=== PATIENT | male | born 1935 | race Caucasian/White ===

== ENCOUNTER 2017-11-09 15:27 | Inpatient (IN) | payer MEDICARE, MEDICAID ==
[~2017-11-09] VITALS: Ht 185.4 cm; Wt 72.7 kg
--- NOTE | ~2017-11-09 | PR ---
[place], [place] PROGRESS NOTE NAME: SABRINA CIFUENTES UNIT #: [id number] ROOM: 507 DOCTOR: RISHI WINTERS MD BIRTHDATE: [birth year] DOS: 11/11/2017 SUBJECTIVE: The patient still remains obtunded, barely opens his eyes, but does not communicate. He is very weak, barely eating and remains febrile. OBJECTIVE: VITAL SIGNS: Blood pressure 142/51, heart rate of 78 beats per minute, breathing 18 times per minute, fever of 101.1 degrees Fahrenheit, pulse ox 95-100%. GENERAL APPEARANCE: Generalized weakness and the patient is lethargic, barely opens his eyes, not communicating. HEENT AND NECK: Exam within normal limits. CARDIOVASCULAR SYSTEM: Heart rate is regular in rate and rhythm. S1 and S2 normally audible. LUNGS: Clear to auscultation. ABDOMEN: Soft, nontender. No obvious organomegaly. Bowel sounds are present. EXTREMITIES: Without significant cyanosis or edema. IMPRESSION: 1. Sepsis, urinary infection, high grade fevers, being treated with Tylenol and Advil. The patient is on IV meropenem and his condition is not improving. His prognosis is poor. He maintains a do not resuscitate/comfort care code status. 2. Leukocytosis with white cell count of 24,000 type has increased from before despite of treatment with meropenem. The patient has no diarrhea to suggest Clostridium difficile colitis checked with the patient, nursing staff and nursing aides. 3. The patient's prognosis remains extremely poor. 4. Multiple wounds on the lower back, sacral area and thigh area and scrotum, being treated. 5. Acute kidney failure with improvement in BUN and creatinine to 30 and 1.4 with hydration with normal saline. Urine cultures are back growing Escherichia coli sensitive to meropenem. He is being treated appropriately. RISHI WINTERS MD CM:PNTRANS [phone] RISHI WINTERS MD 11/11/171952 interface
--- NOTE | ~2017-11-09 | WRIGHTHP ---
[place], [place] PATIENT HISTORY AND PHYSICAL EXAM NAME: SABRINA CIFUENTES [facility] #: [id number] UNIT #: [id number] ROOM: 507 DOCTOR: RISHI WINTERS MD BIRTHDATE: [birth year] DOS: 11/09/2017 HISTORY OF PRESENT ILLNESS: The patient is an 82-year-old gentleman with a past medical history of: 1. Adult failure to thrive. 2. Late onset Alzheimer's type dementia. 3. Coronary artery disease of the [place] vessels, coronary artery bypass graft, 3-vessel in 2007 at [facility]. 4. Type 2 diabetes mellitus. 5. Benign essential hypertension. 6. Generalized anxiety disorder. 7. Major depression, recurrent, mild. 8. Parkinson's disease. 9. GERD. 10. Chronic lower back pains. 11. Combined systolic and diastolic type CHF. 12. Multiple wounds in the sacral and inner thigh area. The patient presented to [facility] Emergency Department for failed outpatient treatment. The patient already was admitted at [facility], which is a senior care and being treated with Augmentin for urinary tract infection and altered mental status. The patient's condition was not improving and had high-grade fevers despite of treatment with Augmentin, so he was seen in the Emergency Department and confirmed to have a urinary tract infection and high-grade fevers and altered mental status. After performing a CT scan of the head and sending out urine cultures and initial treatment with antibiotics, he was admitted for further management and Infectious Diseases were consulted. The patient has had a poor appetite, barely taking any fluids, more lethargic and not communicating like he used to be able to before despite of his dementia. After admission, the patient does open his eyes and looks around, but not answering to any of my questions, appears very weak. REVIEW OF SYSTEMS: LUNGS: No increasing shortness of breath. GASTROINTESTINAL: No nausea, vomiting, diarrhea or constipation, but poor appetite. CARDIOVASCULAR: No recent chest pains or palpitations. SOCIAL HISTORY: The patient is a resident at [facility] for many years now. Denies smoking cigarettes, alcohol and drug abuse. FAMILY HISTORY: Noncontributory. ALLERGIES: Known allergies to QUINOLONES, TRAMADOL and FLEXERIL. HOME MEDICATIONS: MiraLax, Dulcolax, aspirin, Sinemet, Plavix, Zoloft, Augmentin. PHYSICAL EXAMINATION: GENERAL: Awake, alert, ____, does open his eyes, but does not communicate, [place], [place] PATIENT HISTORY AND PHYSICAL EXAM NAME: SABRINA CIFUENTES [facility] #: [id number] UNIT #: [id number] ROOM: 507 DOCTOR: RISHI WINTERS MD BIRTHDATE: [birth year] weak, barely moving his extremities, generalized weakness and muscle wasting and has multiple wounds on his sacral and inner thigh area. VITAL SIGNS: Blood pressure 157/67, heart rate 79 beats per minute, breathing 20 times per minute, temperature of 102.3 degrees rectal. HEENT AND NECK: Extraocular movements are intact. Sclerae are anicteric. Oral mucosa is moist and clean. No obvious facial weakness. Neck is supple without any lymphadenopathy. No thyromegaly. No JVD. No carotid arterial bruits. LUNGS: Clear to auscultation. No wheezing. No rhonchi. CARDIOVASCULAR SYSTEM: Heart rate is regular in rate and rhythm. S1 and S2 normally audible. No significant murmur or any other abnormal cardiac sounds. ABDOMEN: Soft, nontender. No obvious organomegaly. Bowel sounds are present. No obvious herniation. EXTREMITIES: Without significant cyanosis or edema. Warm to touch. CENTRAL NERVOUS SYSTEM: Alert and oriented x 3. Cranial nerves II-XII are intact. Speech is normal. ____. Deep tendon reflexes are equal on both sides. Plantars were downgoing. LABORATORY DATA: Urine culture is growing light gram-negative bacilli. BUN and creatinine 39 and 1.3, improved from admission, sodium elevated to 151. Lactic acid level was elevated at 2.3, improved to 1.7 with hydration. His BUN and creatinine yesterday were 38 [address] of the head showed no acute abnormality. White cell count elevated to 15,000. IMPRESSION: 1. The patient presenting with sepsis, possibly related to a urinary source, high grade fevers, being treated with Tylenol and Advil and blood cultures and urine cultures have been sent. I have consulted Infectious Disease specialist and patient is being treated with IV meropenem. No signs of any chest infection. No shortness of breath or cough. 2. Urinary tract infection and cystitis, being covered with antibiotics, failed outpatient treatment. 3. Leukocytosis with white cell count of 15,300, lactic acid elevation to 2.3 and high-grade fevers up to 102.3 degrees Fahrenheit, compatible with sepsis. Blood cultures have been sent. 4. Benign essential hypertension. Blood pressure is to be monitored and treated. 5. Type 2 diabetes mellitus. Metformin was stopped because of elevation of creatinine. The patient is being hydrated. Blood sugar is to be monitored and treated. The patient does not need any hyperglycemic treatments now because he is not eating much. 6. Advance adult failure to thrive, poor appetite, dehydration, sepsis and poor prognosis. The patient maintains a comfort care code status and he will be treated conservatively. 7. Coronary artery disease of the [place] vessels, without chest pains. 8. Parkinson's disease, for which I will continue Sinemet and keep him on physical therapy and take bedsore precautions. 9. Multiple wounds on lower back and inner thigh area, being followed by wound care and dressings are being applied and we are taking bedsore and fall precautions. 10. Altered mental status, apparently secondary to infection and sepsis. CT of [place], [place] PATIENT HISTORY AND PHYSICAL EXAM NAME: SABRINA CIFUENTES UNIT #: [id number] ROOM: 507 DOCTOR: RISHI WINTERS MD BIRTHDATE: [birth year] the head was without any acute abnormality. 11. Acute kidney failure with creatinine elevated to more than 1.6, is improving with hydration with normal saline, apparently from dehydration and sepsis. 12. Hypernatremia secondary to acute kidney failure and dehydration, to be monitored and treated. Sodium levels to be checked every day. RISHI WINTERS MD CM:HISPHYS:PATIENT HISTORY AND PHYSICAL EXAMINATION 1351 [id number] RISHI WINTERS MD 11/10/17 1431 interface
--- NOTE | ~2017-11-09 | PR ---
[place], [place] PROGRESS NOTE NAME: SABRINA CIFUENTES UNIT #: [id number] ROOM: 512 DOCTOR: RISHI WINTERS MD BIRTHDATE: [birth year] DOS: IMPRESSION: 1. The patient remains under hospice care at the hospital. Blood pressure is 112/50, heart rate 79 beats per minute, breathing normally temperature is ranging between 99-101 degrees Fahrenheit. The patient converted to comfort care. He appears comfortable. No complaints of any agitation. He is not requiring any medications. 2. Recent urinary tract infection with E. coli, which was treated earlier. 3. Coronary artery disease of the [place] vessels without any recent complaints of chest pain. 4. Generalized anxiety disorder. No signs of any anxiety or agitation. RISHI WINTERS MD CM:PNTRANS [id number] RISHI WINTERS MD 11/16/17 0158 interface
--- NOTE | ~2017-11-09 | PR ---
[place], [place] PROGRESS NOTE NAME: SABRINA CIFUENTES UNIT #: [id number] ROOM: 512 DOCTOR: RISHI WINTERS MD BIRTHDATE: [birth year] DOS: 11/12/2017 SUBJECTIVE: The patient continues to barely open his eyes, otherwise he is not communicating. OBJECTIVE: VITAL SIGNS: Blood pressure 130/86, temperature is going as high as 102.4 degrees Fahrenheit. GENERAL APPEARANCE: The patient is alert and oriented x 3, in no visible distress, generalized weakness. HEENT AND NECK: Exam within normal limits. CARDIOVASCULAR SYSTEM: Heart rate is regular in rate and rhythm. S1 and S2 normally audible. LUNGS: Clear to auscultation. ABDOMEN: Soft, nontender. No obvious organomegaly. Bowel sounds are present. EXTREMITIES: Without significant cyanosis or edema. IMPRESSION: 1. The patient with high grade fevers, remains on antibiotics. All blood cultures have been negative. No obvious site of infection other than urine infection, positive for Escherichia coli sensitive to meropenem. Situation discussed with Infectious Disease specialist, Dr. Michael Henderson today. 2. Adult failure to thrive, old age and poor prognosis. 3. Severe leukocytosis, white cell count improved from 24,000 to 20,000 today. 4. Acute kidney failure related to sepsis, being treated with hydration with half normal saline now. 5. Hypernatremia, stabilizing with half normal saline. RISHI WINTERS MD CM:PNTRANS [phone] RISHI WINTESR MD 11/12/17 2252 interface
[~2017-11-09 15:27] MED LIST: AMLODIPINE5 MG PO; ASPIR-TRIN325 MG PO; ASPIRIN325 MG PO; ATIVAN1 MG PO; ATORVASTATIN CA10 M1 PO; AUGMENTIN 875875 MG PO; B-12500 MCG PO; B12,B-12,B 12500 MC1 PO; B121000 MCG/1 IM; BENADRYL ALLERG25 M5 PO; BUSPAR5 MG PO; CARBIDOPA & LEV1 TA1 PO; CELEXA20 MG PO; CIPROFLOXACIN500 MG PO; CLEOCIN T1% T; CLOTRIM ANTIFUNGAL1% T; COREG6.25 MG PO; COZAAR100 MG PO; DELTASONE20 M1 PO; DULCOLAX10 M1 RC; DUONEB 3 MG/3 ML3 M1 INH; FLEXERIL10 MG PO; FLONASE0.05 MG/AC NS; GLUCOPHAGE1000 MG PO; IBUPROFEN600 MG PO; K-Dur 20MEQ20 MEQ PO; KEFLEX500 M1 PO; LASIX20 MG PO; LEXAPRO10 MG PO; LEXAPRO5 MG PO; LORAZEPAM0.5 MG PO; METFORMIN1000 MG PO; METFORMIN500 MG PO; METOPROLOL25 MG PO; MILK OF MA400 MG/5 M PO; MIRALAX POWDER17 GM PO; MIRALAX17 GM PO; MULTI VITAMINS1 TAB PO; NORVASC5 MG PO; NYSTATIN CREAM15 GM PO; OMNICEF300 MG PO; ONDANSETRON4 MG PO; PLAVIX75 M1 PO; PLAVIX75 MG PO; PRILOSEC20 MG PO; PRILOSEC40 MG PO; PROVENTIL0.09 MG/A1 INH; PULMICORT RESP0.5 MG INH; SIMVASTATIN40 MG PO; SINEMET 25-1001 TA1 PO; SINEMET 25-1001 TAB PO; TESTOSTERON200 MG/ML; TETRACYCLINE250 MG PO; TRAMADOL HCL50 MG PO; TYLENOL ARTHRI650 MG PO; TYLENOL325 M2 PO; VITAMIN B11000 MCG/M IM; VITAMIN D32000 I1 PO; VITAMIN D350000 UNIT PO; VITAMIN D5000 I2 PO; WELLBUTRIN SR150 MG PO; ZOCOR40 MG PO; ZOLOFT50 MG PO; ZOLPIDEM TART10 MG PO; Zofran4 MG PO
[2017-11-09 15:34] VITALS: BP 155/81
[2017-11-09] MEDS ORDERED: VITAMIN C500 M1 PO (15:53)
[2017-11-09] MEDS ORDERED: APLISOL5 TUB UNIT INTRADERM (15:54)
[2017-11-09] MEDS ORDERED: ATIVAN0.5 MG PO (15:55)
[2017-11-09] MEDS ORDERED: BAYER ASPIRIN C81 MG PO (15:55)
[2017-11-09 16:13] LABS: BASO % 0.2 % (0.0-1.0); HEMATOCRIT 44.1 % (42.0-52.0); HEMOGLOBIN 13.7 g/dl (14.0-18.0); LYMPH % 19.5 % (27.0-41.0); MEAN CELL VOLUME 85.8 fl (80.0-94.0); MEAN CORPUSCULAR HGB 26.7 pg (27.0-31.0); MEAN CORPUSCULAR HGB CONC 31.1 g/dl (33.0-37.0); MEAN PLATELET VOLUME 10.3 fl (9.6-12.3); MONO % 6.3 % (3.0-9.0); NEUT # 11.2 10*3/uL (2.3-7.9); NEUT % 73.2 % (47.0-73.0); PLATELET COUNT AUTOMATED 360 10*3/uL (130-400); RED BLOOD COUNT 5.14 10*6/uL (4.50-5.90); WHITE BLOOD COUNT 15.3 10*3/uL (4.8-10.8)
[2017-11-09 16:21] LABS: INTERNATIONAL NORM RATIO 1.1 (2.0-3.5)
[2017-11-09 16:31] LABS: ALBUMIN 3.2 gm/dl (3.1-4.5); ALKALINE PHOSPHATASE 72 U/L (45-117); BUN 38 mg/dl (7-24); CHLORIDE 111 mmol/L (98-107); CREATININE 1.63 mg/dL (0.70-1.30); POTASSIUM 4.2 mmol/L (3.5-5.1); SGOT/AST 9 IU/L (3-35); SGPT/ALT 18 U/L (12-78); SODIUM 146 mmol/L (136-145); TOTAL PROTEIN 9.1 gm/dL (6.4-8.2)
[2017-11-09 16:35] LABS: TROPONIN I < 0.015 ng/ml (<0.045)
[2017-11-09 18:21] LABS: BILIRUBIN NEGATIVE (NEGATIVE); BLOOD 3+ (NEGATIVE); CLARITY CLOUDY (CLEAR); COLOR YELLOW (YELLOW); GLUCOSE 1+ (NEGATIVE); KETONE NEGATIVE (NEGATIVE); LEUKO ESTERASE 2+ (NEGATIVE); NITRITE NEGATIVE (NEGATIVE); SPECIFIC GRAVITY >= 1.030 (1.005-1.030)
[2017-11-09 18:24] VITALS: BP 156/73
[2017-11-09 18:35] LABS: BACTERIA 2+; RBC 16-20 rbc/hpf (0-2); WBC 31-40 wbc/hpf (0-5)
[2017-11-09 21:01] VITALS: BP 167/73
[2017-11-09] MEDS ORDERED: TYLENOL325 M1 PO (21:17)
[2017-11-10] VITALS: BP 171/70
[2017-11-10 04:00] VITALS: BP 155/67
[2017-11-10 06:40] LABS: BASO % 0.2 % (0.0-1.0); EOS % 0.1 % (1.0-4.0); HEMATOCRIT 40.4 % (42.0-52.0); HEMOGLOBIN 12.5 g/dl (14.0-18.0); LYMPH # 2.3 10*3/uL (1.3-4.4); LYMPH % 16.4 % (27.0-41.0); MEAN CORPUSCULAR HGB 26.6 pg (27.0-31.0); MEAN CORPUSCULAR HGB CONC 30.9 g/dl (33.0-37.0); MEAN PLATELET VOLUME 10.6 fl (9.6-12.3); MONO # 0.8 10*3/uL (0.1-1.0); MONO % 6.1 % (3.0-9.0); NEUT # 10.5 10*3/uL (2.3-7.9); NEUT % 76.3 % (47.0-73.0); PLATELET COUNT AUTOMATED 325 10*3/uL (130-400); RED CELL DISTRI WIDTH 16.8 % (0-14.5); WHITE BLOOD COUNT 13.8 10*3/uL (4.8-10.8)
[2017-11-10 06:57] LABS: BUN 39 mg/dl (7-24); CHLORIDE 117 mmol/L (98-107); POTASSIUM 3.9 mmol/L (3.5-5.1); SODIUM 151 mmol/L (136-145)
[2017-11-10 06:58] LABS: CREATININE 1.34 mg/dL (0.70-1.30)
[2017-11-10 08:00] VITALS: BP 147/66
[2017-11-10 12:00] VITALS: BP 157/67
[2017-11-10 16:00] VITALS: BP 147/63
[2017-11-10 20:00] VITALS: BP 148/69
[2017-11-11] VITALS: BP 171/64
[2017-11-11 06:52] LABS: HEMATOCRIT 41.4 % (42.0-52.0); HEMOGLOBIN 12.3 g/dl (14.0-18.0); MEAN CELL VOLUME 88.7 fl (80.0-94.0); MEAN CORPUSCULAR HGB 26.3 pg (27.0-31.0); MEAN CORPUSCULAR HGB CONC 29.7 g/dl (33.0-37.0); MEAN PLATELET VOLUME 10.5 fl (9.6-12.3); PLATELET COUNT AUTOMATED 292 10*3/uL (130-400); RED BLOOD COUNT 4.67 10*6/uL (4.50-5.90); RED CELL DISTRI WIDTH 17.1 % (0-14.5); WHITE BLOOD COUNT 24.7 10*3/uL (4.8-10.8)
[2017-11-11 07:08] LABS: CREATININE 1.42 mg/dL (0.70-1.30)
[2017-11-11 07:13] LABS: PLATELET SUFFICIENCY NORMAL (NORMAL); TOTAL CELLS COUNTED 100 #CELLS
[2017-11-11 08:00] VITALS: BP 141/98
[2017-11-11 12:00] VITALS: BP 141/75
[2017-11-11 16:00] VITALS: BP 142/51
[2017-11-11 20:00] VITALS: BP 138/71
[2017-11-12] VITALS: BP 165/79
[2017-11-12 06:46] LABS: BASO % 0.1 % (0.0-1.0); EOS % 0.1 % (1.0-4.0); HEMATOCRIT 41.1 % (42.0-52.0); HEMOGLOBIN 12.5 g/dl (14.0-18.0); LYMPH # 2.3 10*3/uL (1.3-4.4); LYMPH % 11.1 % (27.0-41.0); MEAN CELL VOLUME 87.8 fl (80.0-94.0); MEAN CORPUSCULAR HGB 26.7 pg (27.0-31.0); MEAN CORPUSCULAR HGB CONC 30.4 g/dl (33.0-37.0); MEAN PLATELET VOLUME 11.5 fl (9.6-12.3); MONO # 0.8 10*3/uL (0.1-1.0); MONO % 3.7 % (3.0-9.0); NEUT # 17.1 10*3/uL (2.3-7.9); NEUT % 84.4 % (47.0-73.0); PLATELET COUNT AUTOMATED 239 10*3/uL (130-400); RED BLOOD COUNT 4.68 10*6/uL (4.50-5.90); RED CELL DISTRI WIDTH 17.4 % (0-14.5); WHITE BLOOD COUNT 20.3 10*3/uL (4.8-10.8)
[2017-11-12 06:58] LABS: CREATININE 1.45 mg/dL (0.70-1.30); POTASSIUM 3.8 mmol/L (3.5-5.1)
[2017-11-12 08:00] VITALS: BP 135/80
[2017-11-12 12:00] VITALS: BP 142/71
[2017-11-12 16:00] VITALS: BP 130/86
[2017-11-12 20:00] VITALS: BP 146/62
[2017-11-13 00:32] VITALS: BP 156/69
[2017-11-13 06:19] LABS: BASO % 0.1 % (0.0-1.0); EOS # 0.1 10*3/uL (0.0-0.4); EOS % 0.3 % (1.0-4.0); HEMATOCRIT 42.4 % (42.0-52.0); HEMOGLOBIN 12.6 g/dl (14.0-18.0); LYMPH # 2.9 10*3/uL (1.3-4.4); LYMPH % 13.8 % (27.0-41.0); MEAN CELL VOLUME 89.5 fl (80.0-94.0); MEAN CORPUSCULAR HGB 26.6 pg (27.0-31.0); MEAN CORPUSCULAR HGB CONC 29.7 g/dl (33.0-37.0); MEAN PLATELET VOLUME 11.3 fl (9.6-12.3); MONO # 0.8 10*3/uL (0.1-1.0); MONO % 3.6 % (3.0-9.0); NEUT # 17.1 10*3/uL (2.3-7.9); NEUT % 81.5 % (47.0-73.0); PLATELET COUNT AUTOMATED 209 10*3/uL (130-400); RED BLOOD COUNT 4.74 10*6/uL (4.50-5.90); RED CELL DISTRI WIDTH 17.3 % (0-14.5); WHITE BLOOD COUNT 21.1 10*3/uL (4.8-10.8)
[2017-11-13 06:33] LABS: CREATININE 1.54 mg/dL (0.70-1.30)
[2017-11-13 08:00] VITALS: BP 123/64
[2017-11-13 12:00] VITALS: BP 135/82
[2017-11-13 16:00] VITALS: BP 134/59
== END 2017-11-13 16:56 | disposition hospice, home (50) | DRG 698 ==
LOC: ED 15:27 → 5E 20:18 → EDHOLD 20:18 → 5E 20:44
PROVIDERS: Internal Medicine; Physician Assistant
DX: T83.511A Infection and inflammatory reaction due to indwelling urethral catheter, initial encounter (principal); A41.9 Sepsis, unspecified organism; L89.152 Pressure ulcer of sacral region, stage 2; L89.312 Pressure ulcer of right buttock, stage 2; L89.322 Pressure ulcer of left buttock, stage 2; N17.9 Acute kidney failure, unspecified; E87.0 Hyperosmolality and hypernatremia; I50.40 Unspecified combined systolic (congestive) and diastolic (congestive) heart failure; I11.0 Hypertensive heart disease with heart failure; G20 Parkinson's disease; E11.9 Type 2 diabetes mellitus without complications; G30.1 Alzheimer's disease with late onset; F02.80 Dementia in other diseases classified elsewhere, unspecified severity, without behavioral disturbance, psychotic disturbance, mood disturbance, and anxiety; I25.10 Atherosclerotic heart disease of native coronary artery without angina pectoris; F41.1 Generalized anxiety disorder; F32.9 Major depressive disorder, single episode, unspecified; K21.9 Gastro-esophageal reflux disease without esophagitis; M54.5 Low back pain; Z66 Do not resuscitate; Z51.5 Encounter for palliative care; E86.0 Dehydration; L89.892 Pressure ulcer of other site, stage 2; G89.29 Other chronic pain; N30.90 Cystitis, unspecified without hematuria; R62.7 Adult failure to thrive; S31.000A Unspecified open wound of lower back and pelvis without penetration into retroperitoneum, initial encounter; S71.109A Unspecified open wound, unspecified thigh, initial encounter; W17.89XA Other fall from one level to another, initial encounter; Y93.89 Activity, other specified; Y92.89 Other specified places as the place of occurrence of the external cause; Z95.1 Presence of aortocoronary bypass graft; Z88.8 Allergy status to other drugs, medicaments and biological substances; Z79.899 Other long term (current) drug therapy; Y99.8 Other external cause status; Z88.1 Allergy status to other antibiotic agents; Y83.8 Other surgical procedures as the cause of abnormal reaction of the patient, or of later complication, without mention of misadventure at the time of the procedure

== ENCOUNTER 2017-11-13 17:00 | Inpatient (IN) | payer OTHER, MEDICARE, MEDICAID ==
[~2017-11-13] VITALS: Ht 185.4 cm; Wt 72.7 kg
--- NOTE | ~2017-11-13 | DS ---
[place], [place] DISCHARGE SUMMARY NAME: SABRINA CIFUENTES [facility] #: [id number] UNIT #: [id number] ROOM: 512 DOCTOR: RISHI WINTERS MD BIRTHDATE: [birth year] DOS: 11/13/2017 DISCHARGE DIAGNOSES: 1. The patient with sepsis from unknown source. Case discussed with infectious disease specialist and the patient is not improving and recommended end of life care. Case discussed with Dr. Michael Henderson. 2. Late onset Alzheimer's type dementia. 3. Coronary artery disease of the [place] vessels and coronary artery bypass graft, 3-vessel in 2007 at [facility]. 4. Type 2 diabetes mellitus. 5. Benign essential hypertension. 6. Generalized anxiety disorder. 7. Major depression, recurrent, mild. 8. Parkinson's disease. 9. Gastroesophageal reflux disease. 10. Chronic back pains. 11. Combined systolic, diastolic type congestive heart failure. 12. Multiple wounds in the sacral and in the thigh area. HOSPITAL COURSE: The patient was admitted when he presented to the Emergency Department with failed outpatient treatment. The patient himself was declining and he was becoming weaker and not communicating or eating anymore and also had high-grade fevers despite of being treated with Augmentin for a urinary tract infection. The patient was admitted and finally as urine cultures grew E. coli. The patient was treated with meropenem, but his condition did not improve. The patient continues to have fever even 4 days after the antibiotics were started. The patient opens his eyes, but does not communicate and he is not eating. The patient was continued on hydration with normal saline and finally his power of deputy county attorney, his daughter decided to consult hospice and agreed to hospice care and inpatient hospice admission at [facility]. The patient has been discharged from the hospital and be readmitted under hospice care. Adult failure to thrive, old age with very poor prognosis. Severe leukocytosis related to infection. White cell count ranging between 20 to 24,000 despite of treatment with antibiotics. Severe hypernatremia, even despite of hydration with normal saline and later on half normal saline. The patient's medications were discontinued and he was discharged to be readmitted under care of hospice. LABORATORY DATA: Today's BUN and creatinine are 42 and 1.5, sodium 157, chloride 124, White cell count of 21,000. [place], [place] DISCHARGE SUMMARY NAME: SABRINA CIFUENTES UNIT #: [id number] ROOM: 512 DOCTOR: RISHI WINTERS MD BIRTHDATE: [birth year] RISHI WINTERS MD CM:KALE [id number] RISHI WINTERS MD 11/13/17 1738 interface
--- NOTE | ~2017-11-13 | DS ---
[place], [place] DISCHARGE SUMMARY NAME: SABRINA CIFUENTES UNIT #: [id number] ROOM: 512 DOCTOR: RISHI WINTERS MD BIRTHDATE: [birth year] DOS: 11/16/2017 DISCHARGE DIAGNOSES: 1. End-of-life care, remains under hospice and is being transferred back to [facility] where he originally came from. 2. Advanced adult failure to thrive, recent pneumonia and urine infection. 3. The patient with coronary artery disease of the [place] vessels. 4. Generalized anxiety disorder. 5. Recent sepsis. 6. Late onset Alzheimer's type dementia. 7. Type 2 diabetes mellitus. 8. Benign essential hypertension. 9. Major depression, recurrent, mild. 10. Parkinson's disease with disability. 11. Gastroesophageal reflux disease and esophagitis. 12. Chronic back pains. 13. Combined systolic, diastolic type congestive heart failure. 14. Multiple wounds on the sacrum and thigh area. HOSPITAL COURSE: The patient with advanced failure to thrive, was not improving with medical treatment with antibiotics. Case was discussed with infectious disease specialist, Dr. Michael Henderson and patient's family agreed for end-of-life care with hospice. The patient was readmitted to the hospital under care of hospice and kept comfortable. The patient is not requiring any additional medications to stay comfortable. The patient's fevers were controlled with Tylenol. The patient appears to be in a very comfortable condition to go back to [facility] where he came from to the hospital originally. There is absolutely no reason to keep him longer at the hospital and he will be discharged back to the [facility] under care of hospice on morphine in case needed. DISCHARGE MANAGEMENT: Tylenol 650 mg rectally every 4 hours as needed for fever, for agitation pain or discomfort, morphine 10 mg every 3 hours as needed sublingually concentrate p.r.n. [place], [place] DISCHARGE SUMMARY NAME: SABRINA CIFUENTES UNIT #: [id number] ROOM: 512 DOCTOR: RISHI WINTERS MD BIRTHDATE: [birth year] RISHI WINTERS MD CM:KALE [id number] [phone] RISHI WINTERS MD 11/16/172130 interface
--- NOTE | ~2017-11-13 | PR ---
[place], [place] PROGRESS NOTE NAME: SABRINA CIFUENTES UNIT #: [id number] ROOM: 512 DOCTOR: RISHI WINTERS MD BIRTHDATE: [birth year] DOS: 11/14/2017 SUBJECTIVE: The patient is not waking up. He appears comfortable and in no distress. OBJECTIVE: VITAL SIGNS: Temperature is ranging between 100.5 to 101.6 degrees Fahrenheit. GENERAL APPEARANCE: Generalized weakness, not waking up, but comfortable. HEENT AND NECK: Exam within normal limits. CARDIOVASCULAR SYSTEM: Heart rate is regular in rate and rhythm. S1 and S2 normally audible. LUNGS: Clear to auscultation. ABDOMEN: Soft, nontender. No obvious organomegaly. Bowel sounds are present. EXTREMITIES: Without significant cyanosis or edema. IMPRESSION: 1. The patient with advanced disability and failure to thrive, now under hospice care for end of life management. The patient had fever, which was treated and controlled with Tylenol. 2. For any agitation or pain that the patient may show he is already ordered morphine concentrate and for agitation Haldol just in case it is needed. 3. Recent urinary tract infection, treated with antibiotics. The patient's urine cultures had grown Escherichia coli. 4. Constipation, treated with p.r.n. Dulcolax suppositories. RISHI WINTERS MD CM:PNTRANS [id number] RISHI WINTERS MD 11/15/17 0020 interface
--- NOTE | ~2017-11-13 | WRIGHTHP ---
[place], [place] PATIENT HISTORY AND PHYSICAL EXAM NAME: SABRINA CIFUENTES UNIT #: [id number] ROOM: 512 DOCTOR: RISHI WINTERS MD BIRTHDATE: [birth year] DOS: 11/13/2017 HISTORY OF PRESENT ILLNESS: The patient barely opens his eyes, but does not communicate, very weak, not moving, is under hospice care now, inpatient at [facility] for sepsis and failed treatment with antibiotics. The patient did have a urinary tract infection with E. coli, which was treated earlier and he was on meropenem. The patient's power of records management technician agreed to keep the patient comfortable only and under care of hospice at [facility], which has been arranged. The patient is end-stage and I had a good discussion with Dr. Michael Henderson who also recommended end of life care than rather more treatment at the hospital as a regular patient. The patient is not eating and he will be kept on Haldol, morphine and Dulcolax for continued care. The case was also discussed with hospice nursing staff and hospital nursing staff. LABORATORY DATA: BUN and creatinine 42 and 1.5. White cell count elevated at 20,000, hemoglobin 12.5. Blood cultures were all negative despite of high-grade fever. No more labs to be ordered. IMPRESSION: The patient is to be kept on morphine concentrate 10 mg every hour as needed and Haldol concentrate 2 mg every hour as needed and Dulcolax suppositories to treat constipation as needed and patient will be kept on comfort feeding only as tolerated. RISHI WINTERS MD CM:HISPHYS:PATIENT HISTORY AND PHYSICAL EXAMINATION [id number] 06 RISHI WINTERS MD 11/13/17 180 interface
[~2017-11-13 17:00] MED LIST changes: +APLISOL5 TUB UNIT INTRADERM; +ATIVAN0.5 MG PO; +BAYER ASPIRIN C81 MG PO; +TYLENOL325 M1 PO; +VITAMIN C500 M1 PO
[2017-11-13 17:40] VITALS: BP 134/59
[2017-11-13 20:00] VITALS: BP 161/78
[2017-11-14] VITALS: BP 122/90
[2017-11-14 08:00] VITALS: BP 146/79
[2017-11-14 12:00] VITALS: BP 141/75
[2017-11-14 16:00] VITALS: BP 117/40
[2017-11-14 20:00] VITALS: BP 142/98
[2017-11-15] VITALS: BP 117/69
[2017-11-15 08:00] VITALS: BP 122/64
[2017-11-15 12:00] VITALS: BP 130/56
[2017-11-15 16:00] VITALS: BP 112/50
[2017-11-15 20:00] VITALS: BP 104/59
[2017-11-16] VITALS: BP 98/46
[2017-11-16 08:00] VITALS: BP 107/47
[2017-11-16 12:00] VITALS: BP 107/51
[2017-11-16 16:00] VITALS: BP 117/64
[2017-11-16] MEDS ORDERED: MORPHINE S100 MG/5 M SL (19:46)
[2017-11-16 20:00] VITALS: BP 110/63
== END 2017-11-16 23:28 | disposition other institution (70) | DRG 872 ==
LOC: 5E 17:00
DX: A41.9 Sepsis, unspecified organism (principal); N17.9 Acute kidney failure, unspecified; E87.0 Hyperosmolality and hypernatremia; F33.0 Major depressive disorder, recurrent, mild; I50.40 Unspecified combined systolic (congestive) and diastolic (congestive) heart failure; I11.0 Hypertensive heart disease with heart failure; G20 Parkinson's disease; E11.9 Type 2 diabetes mellitus without complications; G30.1 Alzheimer's disease with late onset; F02.80 Dementia in other diseases classified elsewhere, unspecified severity, without behavioral disturbance, psychotic disturbance, mood disturbance, and anxiety; F41.1 Generalized anxiety disorder; I25.10 Atherosclerotic heart disease of native coronary artery without angina pectoris; Z51.5 Encounter for palliative care; Z66 Do not resuscitate; R62.7 Adult failure to thrive; K21.0 Gastro-esophageal reflux disease with esophagitis; G89.29 Other chronic pain; M54.9 Dorsalgia, unspecified; K59.00 Constipation, unspecified; N30.90 Cystitis, unspecified without hematuria; S30.91XA Unspecified superficial injury of lower back and pelvis, initial encounter; S70.922A Unspecified superficial injury of left thigh, initial encounter; S70.921A Unspecified superficial injury of right thigh, initial encounter; X58.XXXA Exposure to other specified factors, initial encounter; E86.0 Dehydration; Z79.899 Other long term (current) drug therapy; Z79.82 Long term (current) use of aspirin; Z79.02 Long term (current) use of antithrombotics/antiplatelets; Y93.89 Activity, other specified; Y92.89 Other specified places as the place of occurrence of the external cause; Y99.8 Other external cause status